=== PATIENT | female | born 1945 | race Caucasian/White ===

== ENCOUNTER 2018-07-23 23:22 | Inpatient (IN) ==
[2018-07-23 23:56] LABS: BASO# 0.03 X1000 (0.0-0.2); BASO% 0.3 % (0.0-0.8); EOS# 0.07 X1000 (0.0-0.7); EOS% 0.8 % (0.0-10.0); HEMATOCRIT 41.3 % (37.0-47.0); HEMOGLOBIN 13.9 g/dL (12.0-16.0); IMM GRAN# 0.04 X1000 (0.0-0.04); IMM GRAN% 0.4 % (0.0-0.5); LYMPH# 1.81 X1000 (1.2-3.4); LYMPH% 19.7 % (20.5-51.1); MCHC 33.7 g/dL (33-37); MONO# 1.14 X1000 (0.11-0.59); MONO% 12.4 % (1.7-9.3); MPV 8.4 FL (7.4-10.4); NEUT# 6.12 X1000 (1.4-6.5); NEUT% 66.4 % (42.2-75.2); PLT 391 X1000 (130-400); RBC 4.64 XMIL (4.2-5.4); RDW 12.4 % (11.5-14.5); WBC 9.21 X1000 (4.8-10.8)
[2018-07-24 00:12] LABS: AGAP 13; ALB/GLOB RATIO 1.7; ALBUMIN 4.1 g/dL (3.5-5.0); ALKALINE PHOSPHATASE 65 U/L (32-104); BUN 11 mg/dL (8-22); CALCIUM 9.6 mg/dL (8.8-10.2); CHLORIDE 96 mmol/L (98-107); CK PROFILE 117 U/L (24-173); COSMO 271; CREATININE 0.9 mg/dL (0.5-0.9); ESTIMATED GFR > 60; GLUCOSE 100 mg/dL (70-104); GOT 20 U/L (10-30); GPT 19 U/L (10-36); POTASSIUM 4.1 mmol/L (3.5-5.1); SODIUM 136 mmol/L (136-145); TCO2 27 mmol/L (25-35); TOTAL BILIRUBIN 0.21 mg/dL (0.20-1.00); TOTAL PROTEIN 6.5 g/dL (6.3-8.3)
[2018-07-24 00:15] LABS: INR 0.9; PROTIME 12.9 Seconds (11.0-16.0)
[2018-07-24 00:16] LABS: PTT 31.1 Seconds (22.3-41.8)
[2018-07-24] MEDS ORDERED: PULMICORT INH ONE (01:43)
[2018-07-24] MEDS ORDERED: DUONEB (A & A) INH ONE (01:43)
[2018-07-24] MEDS ORDERED: SOLU-MEDROL 0 MG in NS 100 ML IV SCH (01:45)
--- NOTE | 2018-07-24 01:45 | PROVIDER DOCUMENTATION ---
HPI-Respiratory General - General Chief Complaint: Shortness of Breath Stated Complaint: SOB/WHEEZING/PAIN IN LEFT SHOULDER BLADE Time Seen by Provider: 07/24/18 00:51 Allergies/Adverse Reactions: Patient Allergies Allergy/AdvReac Type Severity Reaction Status Date / Time levofloxacin [From Levaquin] AdvReac NAUSEA/VOMI Verified 11/21/17 15:30 TING Home Medications: Home Medication List Medication Instructions Recorded Confirmed Last Taken Type Citalopram Hydrobromide 40 mg PO DAILY 09/26/17 11/23/17 11/22/17 08:00 History [Citalopram HBr] Ipratropium [place] Inhaler 2 puff INH PRN PRN 09/26/17 11/23/17 11/21/17 15:00 History [Atrovent Hfa] Ipratropium/Albuterol Sulfate 3 ml IH 3-4XDAY PRN PRN 09/26/17 11/23/17 11/23/17 05:00 History [Iprat-Albut 0.5-3(2.5) mg/3 ml] Omeprazole 40 mg PO DAILY 09/26/17 11/23/17 11/22/17 08:00 History Prednisone 10 mg PO DIRECTED 09/26/17 11/23/17 11/22/17 08:00 History Roflumilast [Daliresp] 500 microgm PO DAILY 09/26/17 11/23/17 11/23/17 05:00 History Ropinirole HCl 1 mg PO WLUNCH 09/26/17 11/23/17 11/22/17 12:00 History Ropinirole HCl 3 mg PO HS 09/26/17 11/23/17 11/22/17 20:00 History Rosuvastatin Calcium [Crestor] 5 mg PO HS 09/26/17 11/23/17 11/22/17 20:00 History Montelukast Sodium [Singulair] 10 mg PO DAILY 09/28/17 11/23/17 11/22/17 08:00 History Fluticasone/Umeclidin/Vilanter 1 each IH DAILY 11/21/17 11/23/17 11/23/17 05:00 History [Trelegy Ellipta 100-62.5-25] Trazodone [Desyrel] 50 mg PO QHS 11/21/17 11/23/17 11/22/17 20:00 History Amoxicillin/Potassium Clav 1 ea PO BID #20 tab 07/18/18 Unknown Rx [Augmentin 875-125 Tablet] Guaifenesin/Codeine [Robitussin-AC] 5 - 10 ml PO Q4H PRN PRN #8 oz 07/18/18 Unknown Rx - History of Present Illness-Resp Nature of Presenting Problem: Presents to the with complaints of SOB and dyspnea. She states that this started on and she went to her PCP who told her to come to the ED. She thought she would be admitted at that time but she wasnt and was discharged home after breathing treatments, steroid, azithro PO and given cough medications. She states the cough medications help but now she feels like she canot get anything up. She states that she has been doing her breathing treatments every 3-4 hours at home with no relief. She quit smoking 20 years ago but is around current smokers. She denies any fevers or chills. She normally does not take O2 and normally uses it when she is out and about walking around but lately she has been needing it more frequently and even at rest off her O2 she states her SpO2 was 79%. Review of Systems - Adult - REVIEW OF SYSTEMS - ADULT Constitutional: denies: chills, fever Eyes: reports: no symptoms reported Ears, Nose, Mouth & Throat: reports: no symptoms reported Cardiovascular: reports: no symptoms reported Respiratory: reports: cough, dyspnea on exertion, shortness of breath, wheezing Gastrointestinal: reports: no symptoms reported Genitourinary: reports: no symptoms reported Musculoskeletal: reports: no symptoms reported Integumentary: reports: no symptoms reported Neurological: reports: no symptoms reported Psychiatric: reports: no symptoms reported Endocrine: reports: no symptoms reported Hematologic/Lymphatic: reports: no symptoms reported Allergic/Immunologic: reports: no symptoms reported All Other Systems: Reviewed and Negative Past History - Adult - PAST MEDICAL HISTORY-ADULT Review of Records: reports: Old Records Reviewed Major Childhood Illnesses: reports: denies history Cardiovascular: reports: HTN, hyperlipidemia Respiratory: reports: asthma, COPD (on 2 L home O2), sleep apnea Gastrointestinal: reports: GERD Obstetrical/Gynecological: reports: other (prolapsed bladder) 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) Musculoskeletal: reports: denies history Neurological: reports: denies history Endocrine/Immune: reports: denies history Other Conditions: reports: denies history - PRIOR SURGERIES/PROCEDURES Surgical/Procedure History: reports: reviewed, not pertinent - IMMUNIZATION STATUS Childhood Immunizations: See Nurse Assessment Flu Vaccine: See Nurse Assessment - FAMILY HISTORY Family History: reviewed, not pertinent Physical Exam-General - PHYSICAL EXAM-ADULT Initial Vital Signs Reviewed: Yes - CONSTITUTIONAL General Appearance: alert, no apparent distress - EYES Eyes: PERRL/EOMI - HEAD, EARS, NOSE, MOUTH & THROAT HENMT: normocephalic/atraumatic, moist mucous membranes - NECK Neck: non-tender, full range of motion, supple - RESPIRATORY Respiratory: chest non-tender, respiratory distress (mildly tachypneic but still speaking in full sentences), decreased breath sounds (throughout), accessory muscle use, wheezing (diffusely) - CARDIOVASCULAR Cardiovascular: normal peripheral pulses, regular rate, rhythm - GASTROINTESTINAL (ABDOMEN) Abdominal Exam: normal bowel sounds, non tender, soft - MUSCULOSKELETAL Back Exam: normal inspection Extremity: normal inspection - SKIN Integumentary: normal color, warm/dry - NEUROLOGIC Neurologic: grossly normal - PSYCHIATRIC Psych/Mental Status: oriented x 3 Progress - PLAN OF CARE/RESULTS Progress/Plan/Lab Results: Vital Signs - 8 hr 07/23/18 23:26 07/24/18 02:01 07/24/18 02:02 Temperature 97.1 F L Pulse Rate 94 H 81 82 Respiratory Rate 20 17 19 Blood Pressure 145/79 132/85 O2 Sat by Pulse Oximetry 92 L 92 L 93 L 07/24/18 02:10 Temperature Pulse Rate 81 Respiratory Rate 21 Blood Pressure O2 Sat by Pulse Oximetry 93 L Laboratory Results - last 24 hr 07/23/18 07/23/18 07/23/18 23:47 23:47 23:47 WBC RBC Hgb Hct MCV MCH MCHC RDW Std Deviation Plt Count MPV Immature Gran % (Auto) Neut % (Auto) Lymph % (Auto) [place] % (Auto) Eos % (Auto) Baso % (Auto) Immature Gran # (Auto) Neut # (Auto) Lymph # (Auto) [place] # (Auto) Eos # (Auto) Baso # (Auto) PT INR PTT (Actin FS) Specimen Type Sample Site pH pCO2 pO2 HCO3 Base Excess Oxyhemoglobin ABG O2 Sat (Calculated) ABG O2 Saturation ABG Carboxyhemoglobin ABG Methemoglobin Feroz Test A-a O2 Difference Total Hemoglobin Lactate Liter Flow Blood Gas Modality FiO2 % Sodium 136 Potassium 4.1 Chloride 96 L Carbon Dioxide 27 Anion Gap 13 BUN 11 Creatinine 0.9 Estimated GFR/1.73 m2 > 60 BUN/Creatinine Ratio 12 Glucose 100 Calculated Osmolality 271 Calcium 9.6 Total Bilirubin 0.21 AST 20 ALT 19 Alkaline Phosphatase 65 Creatine Kinase 117 Troponin T < 0.010 Tuf-[id number]-[id number] Pept 95 Total Protein 6.5 Albumin 4.1 Globulin 2.4 Albumin/Globulin Ratio 1.7 07/23/18 07/23/18 07/24/18 23:47 23:47 02:18 WBC 9.21 RBC 4.64 Hgb 13.9 Hct 41.3 MCV 89.0 MCH 30.0 MCHC 33.7 RDW Std Deviation 12.4 Plt Count 391 MPV 8.4 Immature Gran % (Auto) 0.4 Neut % (Auto) 66.4 Lymph % (Auto) 19.7 L [place] % (Auto) 12.4 H Eos % (Auto) 0.8 Baso % (Auto) 0.3 Immature Gran # (Auto) 0.04 Neut # (Auto) 6.12 Lymph # (Auto) 1.81 [place] # (Auto) 1.14 H Eos # (Auto) 0.07 Baso # (Auto) 0.03 PT 12.9 INR 0.90 PTT (Actin FS) 31.1 Specimen Type ARTERIAL Sample Site R RADIAL pH 7.46 H pCO2 46 H pO2 72 HCO3 30.8 H Base Excess 7.7 H Oxyhemoglobin 93.7 L ABG O2 Sat (Calculated) 18.5 ABG O2 Saturation 96.9 ABG Carboxyhemoglobin 1.80 ABG Methemoglobin 1.5 Feroz Test YES A-a O2 Difference 70.0 Total Hemoglobin 14.0 Lactate 0.90 Liter Flow 2.0 Blood Gas Modality CANNULA FiO2 % 28.0 Sodium Potassium Chloride Carbon Dioxide Anion Gap BUN Creatinine Estimated GFR/1.73 m2 BUN/Creatinine Ratio Glucose Calculated Osmolality Calcium Total Bilirubin AST ALT Alkaline Phosphatase Creatine Kinase Troponin T [id number]-Cryzyapfpcc Pept Total Protein Albumin Globulin Albumin/Globulin Ratio Orders Category Date Time Status Cardiac Monitoring DIRECTED Care 07/23/18 23:31 Active Oxygen Therapy- ED Nursing DIRECTED Care 07/23/18 23:31 Active Saline Loc NOW Care 07/23/18 23:31 Active CHEST-2 VIEWS [RAD] Stat Exams 07/23/18 23:31 Taken ABG [RESP] Routine Lab 07/24/18 02:18 Completed CBC WITH ELECTRONIC DIFF [HEME] Stat Lab 07/23/18 23:47 Completed CK PROFILE [SP CHEM] Stat Lab 07/23/18 23:47 Completed COMPREHENSIVE METABOLIC PANEL [CHEM] Stat Lab 07/23/18 23:47 Completed PRO B-NATRIURETIC PEPTIDE Stat Lab 07/23/18 23:47 Completed PRO B-NATRIURETIC PEPTIDE Stat Lab 07/24/18 01:44 Ordered PROTIME WITH INR [COAG] Stat Lab 07/23/18 23:47 Completed PTT [COAG] Stat Lab 07/23/18 23:47 Completed TROPONIN T Stat Lab 07/23/18 23:47 Completed Albuterol 2.5MG/Ipratrop 0.5MG [Duoneb (A & A)] Med 07/24/18 01:43 Discontinued 9 ml INH NOW ONE Budesonide [Pulmicort] Med 07/24/18 01:43 Discontinued 0.5 mg INH NOW ONE Methylprednisolone Sod Succ [Solu-Medrol] 0 mg Med 07/24/18 01:45 Ordered 0.9% Sodium Chloride Inj [Ns] 100 ml IV Q6H Aerosol Treatments Routine Oth 07/24/18 01:43 Completed Aerosol Treatments Stat Oth 07/24/18 01:43 Completed CP/SOB/Palp >45 yrs of Age Stat Oth 07/23/18 23:31 Ordered EKG [EKG] Stat Ther 07/23/18 23:31 Ordered Patient with COPD exacerbation. CXR not showing anything acute and no WBC but given her desaturation and need for increased O2 will require admission for COPD exacerbation. Spoke to hospitalist who accepted patient for admission. Orders to be placed by admitting physician. Result Diagrams: 07/23/18 23:47 07/23/18 23:47 Departure - Departure Date of Disposition Decision: 07/24/18 Time of Disposition Decision: 02:50 DIAGNOSIS: COPD exacerbation, Hypoxia Disposition: ADMITTED INPATIENT 09 Certified Medical Emergency: Emergent Condition: Stable Referrals and Follow-Ups: uLpe Crisostomo MD [Primary Care Provider] - - Critical Care Note This patient required my direct & personal management of CC.: Yes Total Time (mins): 35 Critical Care Statement: This patient required my direct personal management to treat or rule out processes, the absence of which, could potentiallly result in sudden, clinically significant life or limb threatening deterioration. Attestation - Physician/ EKATERINA Attestation Patient care was provided by Advanced Practice Provider:: No The physician spent face to face time with patient:: Yes Advanced Practice Provider documentation review:: Supervising physician onsite and consulted in the evaluation and care of this patient. The physician did have a face to face encounter with the patient.
[2018-07-24 02:28] LABS: ALLEN TEST YES; BE 7.7 mmoll (-3.0-3.0); BLOOD TYPE ARTERIAL; HCO3-(ACT) 30.8 mmoll (20.0-26.0); METHB 1.5 % (0.0-1.5); O2(CT) 18.5 mL/dL (15.0-23.0); O2HB 93.7 % (95.0-99.0); PCO2(98.6) 46 mmHg (35-45); PO2(98.6) 72 mmHg (60-100); SAMPLE BLOOD; SAO2 96.9 % (95.0-100.0); pH(98.6) 7.46 (7.35-7.45)
[2018-07-24 02:35] LABS: MODALITY CANNULA
[2018-07-24] MEDS ORDERED: ZOFRAN IV PRN (05:13)
[2018-07-24] MEDS ORDERED: TYLENOL PO PRN (05:13)
[2018-07-24] MEDS ORDERED: DOXYCYCLINE 100 MG in NS 250 ML IV SCH (05:30)
[2018-07-24] MEDS: SOLU-MEDROL IV SCH ×3 (06:32→21:02)
[2018-07-24] MEDS: LOVENOX SUBQ SCH (06:32)
--- NOTE | 2018-07-24 06:34 | HISTORY AND PHYSICAL ---
CHIEF COMPLAINT: Shortness of breath, decreased O2. HISTORY OF PRESENT ILLNESS: This is a 73-year-old female who comes in with shortness of breath. She has a history of COPD, asthma, obstructive sleep apnea and hyperlipidemia. She states that she has had increasing dyspnea. She went to her PCP this last and then came to the emergency room. She expected to be admitted at that time but was discharged home with antibiotic, steroids and p.o. cough medicine. Feels like she cannot get anything up. She has been doing nebulizer treatments every three to four hours. She denies any type of fever or chills. Stated that her oxygen saturation was 79% without oxygen. She normally does not have to use oxygen except for when she is up and really exerting herself. She will be admitted to the medical floor for further evaluation and treatment. PAST MEDICAL HISTORY: See HPI. PREVIOUS SURGICAL HISTORY: Right shoulder surgery, BTL, hysterectomy. SOCIAL HISTORY: Stopped smoking in 2008. No alcohol. No illicit drugs. FAMILY HISTORY: Positive for diabetes mellitus, breast cancer, questionable bone cancer in her father as well as hypertension. ALLERGIES: Levaquin. HOME MEDICATIONS: 1. Augmentin. 2. Prednisone 10 mg p.o. daily. 3. Celexa 40 mg p.o. daily. 4. Trilogy Ellipta 100/62.5/25 one inhalation daily. 5. Robitussin q 4 p.r.n. 6. Atrovent two puffs inhalation p.r.n. 7. Singulair 10 mg p.o. daily. 8. Omeprazole 40 mg p.o. daily. 9. Daliresp 500 p.o. daily. 10.Ropinirole 1 mg p.o. with lunch and 3 mg p.o. nightly. 11.Crestor 5 mg p.o. nightly. 12.Trazodone 50 mg p.o. nightly. REVIEW OF SYSTEMS: Fourteen point review of systems conducted with the patient. She also was having some pain that felt like a catch in her left shoulder blade. Otherwise, 14 point review of systems conducted with the patient. Pertinent positives listed above in the HPI. All other systems were reviewed and found to be negative. PHYSICAL EXAMINATION: VITAL SIGNS: Temperature 97.1, pulse 92, respirations 23, blood pressure 125/75, oxygen saturation 93% on 2 L nasal cannula. GENERAL: A 73-year-old female lying in the ER stretcher, is mildly tachypneic, is otherwise in no acute distress. HEENT: Head is atraumatic, normocephalic. Pupils equal, round, reactive to light. Extraocular eye movements intact. Sclerae is anicteric. Conjunctiva is pink. Oral mucosa is moist. NECK: Supple. No JVD. No thyromegaly. Trachea is midline. No cervical lymphadenopathy. CARDIAC: S1, S2 appreciated. No murmurs, gallops, rubs. LUNGS: Decreased bilaterally. Prolonged expiratory phase. Expiratory wheezing. No rhonchi. No rales. Symmetric rise and fall with respirations. ABDOMEN: Soft, nondistended, nontender. Bowel sounds present all 4 quadrants, normoactive. No pulsatile mass. No organomegaly. EXTREMITIES: No clubbing, cyanosis or edema. Two-plus pedal pulses. GENITOURINARY: No bladder distention. The patient voids. Otherwise deferred. NEUROLOGICAL: Alert and oriented times 3. Cranial nerves II through XII grossly intact. DIAGNOSTIC DATA: Chest x-ray shows chronic COPD changes. LABORATORY DATA: CBC within normal limits. Coags within normal limits. Chemistry panel within normal limits. ABG: pH 7.46, PCO2 46, PO2 72, bicarb 30.8. This is on 2 L nasal cannula. ASSESSMENT: 1. Chronic obstructive pulmonary disease with mild exacerbation. Solu-Medrol 60 mg IV q.8.h times 3 doses. Continue bronchodilators and inhaled steroids, cough medicine p.r.n. Will give doxycycline 100 mg IV q.12.h in case the source of the exacerbation is bacterial. 2. Asthma. Continue Singulair. See above bronchodilators. 3. Hyperlipidemia. Continue statin. 4. Restless leg syndrome. Continue Ropinirole and Celexa. Further recommendations per patient clinical course. Dictated by SUSY Dyson for Jayson Andrews MD I have performed a face to face diagnostic evaluation. Labs and Xrays- reviewed. Exam- chest- rhonchi A/P- COPD Exac- Admit, IV solumedrol, duo tatiana, Dr. Andrews cc: SUSY Dyson MD [facility]
--- NOTE | 2018-07-24 07:30 | Diag Imaging Result Doc PS360 ---
EXAM: CHEST-2 VIEWS HISTORY: sob TECHNIQUE: Chest two views COMPARISON: 07/18/2018 FINDINGS: The lungs are hyperexpanded with basilar atelectasis. The heart is not enlarged. The vessels are small. There are no infiltrates. No pleural effusions. There is a moderate-sized hiatal hernia. There are scattered granuloma. IMPRESSION: Severe emphysema Electronically signed by Chris Fuentes 07/24/2018 7:28 AM
[2018-07-24] MEDS: DUONEB (A & A) INH PRN ×3 (07:42→20:01)
[2018-07-24] MEDS: UMECLIDIN IH SCH (07:45)
[2018-07-24] MEDS: FLUTICASONE IH SCH (07:45)
[2018-07-24] MEDS: VILANTER IH SCH (07:45)
[2018-07-24] MEDS: DALIRESP PO SCH (08:04)
[2018-07-24] MEDS: SINGULAIR PO SCH (08:04)
[2018-07-24] MEDS: PRILOSEC PO SCH (08:04)
[2018-07-24] MEDS: CELEXA PO SCH (08:04)
--- NOTE | 2018-07-24 08:09 | EKG Report ---
Test Performed on : 07/23/2018 11:38:29 PM Test Reason : SOB Blood Pressure : / mmHG Vent. Rate : 096 BPM Atrial Rate : 096 BPM P-R Int : 134 ms QRS Dur : 078 ms QT Int : 340 ms P-R-T Axes : 068 058 058 degrees QTc Int : 429 ms Normal sinus rhythm. Possible Left atrial enlargement Borderline ECG When compared with ECG of 18-JUL-2018 15:54, (Unconfirmed) No significant change was found Unconfirmed Result
[2018-07-24] MEDS: REQUIP PO SCH ×2 (13:08→21:03)
--- NOTE | 2018-07-24 14:58 | PROGRESS NOTE ---
DATE: 07/24/2018 SUBJECTIVE: Patient admitted this morning for COPD exacerbation. The patient with what appears to be chronic hypercapnic respiratory failure and possibly chronic versus acute on chronic hypoxic respiratory failure. Dyspnea now somewhat improved, although still dyspneic on exertion. On 2 L of oxygen at home requiring 3 to 4 L of oxygen here. However, she states she has been on 2 L for a long period of time. This may represent worsening of her underlying baseline. Continuing DuoNebs and steroids and reassess in the morning. She is already significantly improved from admission, and if she continues to improve rapidly, then may be able to go home tomorrow.
[2018-07-24] MEDS: ATROVENT HFA INH SCH ×2 (15:42→20:00)
[2018-07-24] MEDS: CRESTOR PO SCH (21:03)
[2018-07-24] MEDS: DESYREL PO SCH (21:03)
[2018-07-24] MEDS: ROBITUSSIN-AC PO PRN (21:19)
[2018-07-25] MEDS: ROBITUSSIN-AC PO PRN ×4 (02:19→20:54)
[2018-07-25] MEDS: ATROVENT HFA INH SCH ×4 (03:20→22:03)
[2018-07-25] MEDS: LOVENOX SUBQ SCH (05:58)
[2018-07-25 07:05] LABS: BASO# 0.03 X1000 (0.0-0.2); BASO% 0.3 % (0.0-0.8); HEMATOCRIT 44.2 % (37.0-47.0); HEMOGLOBIN 14.8 g/dL (12.0-16.0); IMM GRAN# 0.02 X1000 (0.0-0.04); IMM GRAN% 0.2 % (0.0-0.5); LYMPH# 1.37 X1000 (1.2-3.4); LYMPH% 13.6 % (20.5-51.1); MCH 30.2 PG (27-31); MCHC 33.5 g/dL (33-37); MCV 90.2 FL (81-99); MONO# 0.72 X1000 (0.11-0.59); MONO% 7.1 % (1.7-9.3); MPV 8.6 FL (7.4-10.4); NEUT# 7.94 X1000 (1.4-6.5); NEUT% 78.8 % (42.2-75.2); PLT 436 X1000 (130-400); RDW 12.4 % (11.5-14.5); WBC 10.08 X1000 (4.8-10.8)
--- NOTE | 2018-07-25 07:10 | Diag Imaging Result Doc PS360 ---
EXAM: CHEST-PORTABLE 07/25/2018 HISTORY: dyspnea TECHNIQUE: AP portable at 0543 COMMENT: Compared to the previous study of 07/23/2018 there has been some clearing of atelectasis in the right costophrenic angle region. There is still some ill-defined opacity over the left base which may be due to atelectasis or pneumonia but this is slightly improved since the previous study. There continues to be a hiatal hernia and calcific granulomata in the left upper lobe, right lower lobe and hilar nodes. IMPRESSION: Improved atelectasis. Electronically signed by Sai Escobar 07/25/2018 7:08 AM
[2018-07-25 07:17] LABS: AGAP 11; BUN 13 mg/dL (8-22); CALCIUM 9.7 mg/dL (8.8-10.2); CHLORIDE 97 mmol/L (98-107); COSMO 274; CREATININE 0.7 mg/dL (0.5-0.9); ESTIMATED GFR > 60; GLUCOSE 134 mg/dL (70-104); POTASSIUM 4.2 mmol/L (3.5-5.1); SODIUM 136 mmol/L (136-145); TCO2 28 mmol/L (25-35)
[2018-07-25] MEDS: FLUTICASONE IH SCH (07:43)
[2018-07-25] MEDS: UMECLIDIN IH SCH (07:43)
[2018-07-25] MEDS: VILANTER IH SCH (07:43)
[2018-07-25] MEDS: DUONEB (A & A) INH PRN ×3 (07:44→21:19)
[2018-07-25 07:47] LABS: LYMPHS 14 % (21-51); SEGS 82 % (42-75)
[2018-07-25] MEDS: PRILOSEC PO SCH (09:06)
[2018-07-25] MEDS: CELEXA PO SCH (09:07)
[2018-07-25] MEDS: DALIRESP PO SCH (09:07)
[2018-07-25] MEDS: SINGULAIR PO SCH (09:07)
[2018-07-25 11:41] LABS: URINE SOURCE CLEAN CATCH
[2018-07-25 11:52] LABS: BILIRUBIN URINE NEGATIVE (NEGATIVE); BLOOD URINE NEGATIVE (NEGATIVE); COLOR YELLOW; GLUCOSE URINE NEGATIVE (NEGATIVE); KETONE URINE NEGATIVE (NEGATIVE); LEUKOCYTES URINE NEGATIVE (NEGATIVE); NITRITE URINE NEGATIVE (NEGATIVE); PH URINE 6.5; PROTEIN URINE NEGATIVE (NEGATIVE); TURBIDITY URINE CLEAR (CLEAR); UROBILINOGEN URINE NORMAL (NORMAL)
[2018-07-25 11:53] LABS: UR EPITHELIAL CELLS <10 /HPF (<10); URINE BACTERIA NEGATIVE /HPF; URINE RBC <10 /HPF (<10); URINE WBC <10 /HPF (<10)
[2018-07-25] MEDS: REQUIP PO SCH ×2 (12:03→20:28)
--- NOTE | 2018-07-25 15:11 | PROGRESS NOTE ---
DATE: 07/25/2018 INTERVAL HISTORY: The patient's respiratory symptoms are improving but still becomes dyspneic with minimal exertion and still with some wheezing. Oxygen requirements occasionally as high as 4 L but appears to be improved overall. General saturating well on her home 2 L of oxygen. No new complaints. No other acute events overnight. REVIEW OF SYSTEMS: A 12 points review of systems is negative except as per interval history. LABS: WBC 10.0, hemoglobin 14.8, hematocrit 44.2, platelets 436,000. Basic metabolic panel unremarkable aside from glucose 134. Urinalysis is negative. IMAGING: Chest x-ray with improved right lower lobe atelectasis. No other acute process. VITAL SIGNS: T-max 98.2, pulse 76, respirations 20, blood pressure 146/80, O2 saturation 94% on 2 L by nasal cannula. PHYSICAL EXAMINATION: General: No acute distress. Vital Signs: As above. HEENT: Normocephalic, atraumatic. Moist mucous membranes. No cervical adenopathy. Cardiovascular. Regular rate and rhythm. No murmurs, rubs, or gallops noted. Pulmonary: Slightly decreased air entry throughout. Still with some expiratory wheezing noted. No rales or rhonchi. Abdomen: Soft, nontender, nondistended. Bowel sounds positive. Extremities: Peripheral pulses intact. No clubbing, cyanosis, or edema. Neurologic: Cranial nerves grossly intact. No focal deficits identified. Psychiatric: Normal mood and affect. Awake, alert, and oriented x3. Skin: No new rashes or lesions identified. ASSESSMENT AND PLAN: 1. Chronic obstructive pulmonary disease with mild exacerbation, chronic hypoxic respiratory failure. The patient's symptoms are improving and oxygen requirement is near baseline but still with significant dyspnea on exertion and wheezing. Continue high-dose intravenous steroids and DuoNebs. No evidence of bacterial infections so we will discontinue antibiotics and monitor. The patient continues to improve and may be able to discharge home tomorrow. 2. Hyperlipidemia. Continue statin. 3. Restless legs syndrome. Continue home ropinirole. 4. Deep vein thrombosis prophylaxis with Lovenox. [facility]
[2018-07-25] MEDS: DESYREL PO SCH (20:28)
[2018-07-25] MEDS: CRESTOR PO SCH (20:29)
[2018-07-26] MEDS: DUONEB (A & A) INH PRN ×3 (03:36→11:35)
[2018-07-26] MEDS: ATROVENT HFA INH SCH ×2 (03:43→11:36)
[2018-07-26] MEDS: ROBITUSSIN-AC PO PRN ×3 (04:25→12:19)
[2018-07-26] MEDS: LOVENOX SUBQ SCH (05:11)
[2018-07-26] MEDS: VILANTER IH SCH (07:40)
[2018-07-26] MEDS: UMECLIDIN IH SCH (07:40)
[2018-07-26] MEDS: FLUTICASONE IH SCH (07:40)
[2018-07-26 07:42] VITALS: BP 130/83
[2018-07-26] MEDS: CELEXA PO SCH (08:23)
[2018-07-26] MEDS: DALIRESP PO SCH (08:23)
[2018-07-26] MEDS: PRILOSEC PO SCH (08:23)
[2018-07-26] MEDS: SINGULAIR PO SCH (08:23)
[2018-07-26] MEDS: REQUIP PO SCH (12:19)
--- NOTE | 2018-07-26 22:38 | DISCHARGE SUMMARY ---
ADMISSION DATE: 07/24/2018 DISCHARGE DATE: 07/26/2018 IMAGING: Chest x-ray x2 showing emphysema with a little bit of atelectasis but no other acute process. DISCHARGE DIAGNOSES: 1. Chronic obstructive pulmonary disease exacerbation. 2. Acute on chronic hypoxic respiratory failure. 3. Hyperlipidemia. 4. Restless legs syndrome. HOSPITAL COURSE: The patient is a 73-year-old female with history of COPD on 2 L of oxygen at home. The patient presented with increasing dyspnea. No bacterial infection was found, but she did have hypoxia with O2 saturation just after her admission down to 89% on her home 2 L. She had some significant wheezing and was felt to be in COPD exacerbation. She was treated with nebulizer treatments and steroids, and she slowly improved. On the day of discharge, patient's resting oxygen was in the low 90s on her home 2 L but with even minimal exertion she desatted so it was felt that her home oxygen needed to be increased to 3 L and may need slightly more with exertion. Starting patient on Singulair was discussed, but patient had had difficulty with use of Trilogy in the past and is now using Symbicort, so this was deferred to her regular lung doctor. 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 DISCHARGE VITALS: Temperature 98.3 degrees, pulse 86, respirations 16, blood pressure 138/83, O2 saturation 94% on 3 L by nasal cannula. DISCHARGE DIET: Regular. DISCHARGE MEDICATIONS: 1. Trazodone 50 mg p.o. at bedtime. 2. Citalopram 40 mg p.o. daily. 3. Rosuvastatin 5 mg p.o. at bedtime. 4. Daliresp as previously prescribed. 5. DuoNebs q.4-6 hours as needed. 6. Omeprazole 40 mg p.o. daily. 7. Requip as previously prescribed. 8. Singulair 10 mg p.o. daily. 9. Symbicort inhaled daily. 10. Prednisone taper. FOLLOWUP AND PLAN: Patient discharged home on steroid taper to continue home nebulizers and inhalers. Follow up with PCP and pulmonology. TIME SPENT: Greater than 30 minutes spent arranging discharge and counseling patient.
== END 2018-07-26 12:24 | disposition home health service (06) | DRG 190 ==
LOC: ED 23:22 → SUATTDRO 07-24 05:23 → 4N 07-24 05:23
PROVIDERS: ATTEND Internal Medicine
CPT/HCPCS: 71010; 71020; 71045; 71046; 80048; 80053; 81001; 82550; 82805; 83880; 84484; 85025; 85610; 85730; 93005; 94640; 94761; 94799; 99285; 99291; A9270; J1650; J2930; J7050